=== PATIENT | female | born 2000 | race Caucasian/White ===

== ENCOUNTER 2020-10-17 11:06 | Outpatient (REF) | payer OTHER, SELFPAY | END 2020-10-17 11:07 | disposition home or self-care (01) | LOC: HO.LAB 11:06 | PROVIDERS: PCP Pediatrics; Visit Provider Internal Medicine | DX: Z20.828 Contact with and (suspected) exposure to other viral communicable diseases (principal) | CPT/HCPCS: C9803; U0003 ==

== ENCOUNTER 2020-10-24 16:44 | Outpatient (REF) | payer OTHER, SELFPAY | END 2020-10-24 16:45 | disposition home or self-care (01) | LOC: HO.LAB 16:44 | PROVIDERS: Visit Provider Internal Medicine | DX: Z20.828 Contact with and (suspected) exposure to other viral communicable diseases (principal) | CPT/HCPCS: C9803; U0003 ==

== ENCOUNTER 2021-10-18 14:02 | Outpatient (REF) | payer OTHER, SELFPAY ==
[2021-10-18 15:15] LABS: COVID-19 Test Negative (Negative); IDNOW Serial# 16C4AD1C
== END 2021-10-18 14:03 | disposition home or self-care (01) ==
LOC: HO.LAB 14:02
PROVIDERS: Visit Provider Internal Medicine
DX: Z20.822 Contact with and (suspected) exposure to COVID-19 (principal)
CPT/HCPCS: 36415; 87635; C9803

== ENCOUNTER 2021-10-30 12:29 | Outpatient (REF) | payer OTHER, SELFPAY | END 2021-10-30 12:30 | disposition home or self-care (01) | LOC: HO.LAB 12:29 | PROVIDERS: Visit Provider Internal Medicine | DX: Z20.822 Contact with and (suspected) exposure to COVID-19 (principal) | CPT/HCPCS: C9803; U0003; U0005 ==

== ENCOUNTER 2021-11-01 11:48 | Outpatient (REF) | payer OTHER, SELFPAY ==
[2021-11-01 14:39] LABS: COVID-19 Test Negative (Negative)
== END 2021-11-01 11:49 | disposition home or self-care (01) ==
LOC: HO.LAB 11:48
PROVIDERS: Visit Provider Internal Medicine
DX: Z20.822 Contact with and (suspected) exposure to COVID-19 (principal)
CPT/HCPCS: 36415; 87635; C9803

== ENCOUNTER 2024-06-04 14:24 | Emergency (ER) | payer OTHER, SELFPAY ==
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
[2024-06-04 14:34] VITALS: BP 174/87; PULSE 84; RESP 18; TEMP 36.3; O2SAT 96; BMI 29.4
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
[2024-06-04 15:47] LABS: HCG Quantitative < 2 mIU/mL
[2024-06-04 17:23] VITALS: BP 129/93; PULSE 63; RESP 16; TEMP 36.6; O2SAT 97
--- NOTE | 2024-06-04 18:00 | PC.NURSE ---
pt a&ox3, vss, pt awaiting results of imaging, to discharge home
[2024-06-04 18:23] VITALS: BP 121/89; PULSE 60; RESP 16; TEMP 36.6; O2SAT 98
== END 2024-06-04 18:23 | disposition home or self-care (01) ==
PROVIDERS: Physician Assistant Medical; Emergency Provider Emergency Medicine; PCP Nurse Practitioner Family
DX: Z04.1 Encounter for examination and observation following transport accident (principal); R51.9 Headache, unspecified; M54.2 Cervicalgia
CPT/HCPCS: 36415; 70450; 72125; 84702; 99282; 99284